=== PATIENT | male | born 1975 | race Caucasian/White ===

== ENCOUNTER 2023-03-04 15:58 | Outpatient (CLI) | payer OTHER ==
--- NOTE | 2023-03-04 16:27 | Sleep Patient Instructions ---
Sleep Center Visit Summary - Patient Visit Information Reason for Visit: Initial consult for evaluation of sleep disordered breathing and other sleep issues. - Patient Instructions Instructions Attached: Sleep Study Home Monitor, Sleep Study Additional Instructions: You will be completing a sleep study, either an in-lab polysomnography (PSG) or home sleep study (HST). You will follow-up in the sleep care office after the sleep study is completed to hear the results and talk about therapy, if needed. You will be called by our office staff to schedule this appointment, but you may contact us with any questions. - Clinic Information Contact: [facility] [address] [place] [id number] [email or web address] T: [phone]
--- NOTE | 2023-03-04 16:31 | SLEEP CARE CONSULTATION ---
Information from patient questionnaire entered by Nura Duran. I have reviewed and concur with the information entered by Nura Duran. This document represents the service I personally performed and the decisions made by me, Digna Yeager ARNP. History of Present Illness Service Date and Time: 03/04/2023 1558 Reason for Visit: New patient Chief Complaint: reports: Snoring, Excessive daytime sleepiness, Fatigue, Other (JAW PAIN) Date of Onset: 30YRS Usual bedtime: 11PM Time it takes to fall asleep: 5MIN Snores at night: Yes Observed to quit breathing while asleep: No Sleeps alone due to snoring: No Number of times waking at night: 2 Reasons for waking at night: reports: Pain, Bathroom, Other (DIABETIC BLOOD SUGAR; rare reflux). denies: Choking, Snoring, Gasping for air Toss, Turn, or Twitch while sleeping: Yes Recalls having dreams: Yes (occasional) Usually gets out of bed at: 6AM Feels refreshed in the morning: Yes (about once a week; usually not as rested) Morning headache: No Sleepy or fatigued during the day: Yes (unintentional naps at [employer]) Ever fallen asleep while driving: No Takes day naps: Yes (on weekends) Dreams during day naps: No Prior sleep studies: No Additional HPI information: I had the pleasure of seeing DILIA POST today regarding the possibility of him having a sleep disorder. His current complaints are snoring, excessive daytime sleepiness, fatigue and jaw pain. He comes in for a combination of reasons. His dentist is concerned about his grinding his teeth at night. He has a bad overbite and TMJ issues. His dentist wants him to have jaw surgery. His doctor is concerned about daytime fatigue and snoring. His has noted that he stops breathing at night and he is clacking and grinding his teeth. He wakes up with jaw pain and his jaw is "almost locked up" in the morning. He says maybe once a week he will wake up feeling refreshed. He denies headaches in the morning. - Parasomnia Symptoms Ever been unable to move upon waking from sleep: No Walks in sleep: No Talks in sleep: No Ever acted out dreams in sleep: No Ever felt weak in the knees when startled or emotional: Yes (feels tingly when startled but not falling down) Bothered by creepy, crawly, restless sensations in legs: No Problems with memory or concentration: Yes (never good memory) Subjective Initial [place] Sleepiness Scale score: 10 (03/03/23) Past Medical History Past Medical History: reports: Diabetes (type 1), Arrythmia (heart flutters as a child, occasional as adult), Asthma (exercise induced or with allergies), GERD Social History The patient's occupation is a TEACHER. Patient is and lives in [place]. Have you smoked in the past 12 months: No Alcohol use: Yes Alcohol amount and frequency: 1 DRINK 2 X WEEKLY Caffeine use: Yes Caffeine amount and frequency: 3 COFFEES DAILY Family History Family history of sleep disordered breathing: Yes Family Hx Sleep Apnea: Mother: Snoring, Father: Snoring, Sibling: Snoring, Grandparent: Snoring Allergies and Home Medications Known drug allergies: No Drug allergies reviewed: Yes Home medication list reviewed: Yes (as listed) Allergy and home medication list: Home Medications Medication Instructions Recorded Confirmed Last Taken Type Albuterol Sulf [Ventolin Hfa See Rx Instructions .ROUTE .COMPLEX 03/03/23 03/04/23 Unknown History Inhaler] Insulin NPH Human [HumuLIN N] See Rx Instructions .ROUTE .COMPLEX 03/03/23 03/04/23 Unknown History Loratadine See Rx Instructions .ROUTE .COMPLEX 03/03/23 03/04/23 Unknown History Pravastatin [Pravachol] See Rx Instructions .ROUTE .COMPLEX 03/03/23 03/04/23 Unknown History Review of Systems Weight gain over past 5 years: 10 Cardiovascular: reports: chest pain. denies: high blood pressure Respiratory: reports: shortness of breath, wheeze, sputum production, chronic cough Gastrointestinal: reports: heartburn, abdominal pain Neurological: reports: headaches Ear/Nose/Throat: reports: nasal congestion, dry mouth/throat, hoarseness, tonsillectomy, wisdom teeth removed, other (TMJ) Endocrine: reports: sluggishness Musculoskeletal: reports: joint pain, neck pain, back pain Physical Exam Vital signs obtained and entered by: NURA Mcguire MA Blood Pressure: 152/87 (LEFT ARM) Cuff size: regular Heart Rate: 86 O2 Saturation: 97 Height: 5 ft 11.25 in Weight: 226 lb 9.6 oz Body Mass Index: 31.4 BMI Classification: Obese Neck circumference: 16.5 Mouth and throat: narrow oropharynx Soft palate: long Hard palate: normal Uvula: normal Uvula visualization: 100% Mallampati Class I Tongue: normal in size Tonsils: absent bilaterally Chin and jaw: Retrognathia Neck: normal w/o lymphadenopathy or thyromegaly Heart: regular rate and rhythm Lungs: clear bilaterally Impression and Plan 1. Suspected Obstructive Sleep Apnea-Hypopnea Syndrome, as suggested by a history of loud and irregular snoring, observed cessation of breath while asleep, unrefreshed sleep, cognitive impairment, and excessive daytime sleepiness. Narrow oropharynx and obesity are common predisposing factors for obstructive sleep apnea-hypopnea syndrome. I recommend proceeding to polysomnography to confirm the diagnosis and to assess severity. If the patient has significant sleep disordered breathing, a manual CPAP titration study will also be performed to find the optimal treatment pressure. I informed the patient of what the sleep studies involve and after some discussion, obtained agreement to proceed. The pathophysiology of obstructive sleep apnea-hypopnea syndrome was discussed with the patient and health risks of cardiovascular and cerebrovascular disease if not treated. Risks of drowsy driving discussed in detail and patient advised to avoid long distance driving and to tap puller at the first sign of drowsiness. Patient agreed to plan. * Schedule polysomnography * Avoid long distance driving or driving when feeling sleepy. * Avoid alcohol, sedative and muscle relaxant around bedtime. * Attempt to lose weight. * Review instructions provided by trained office staff on how to prepare for the sleep study. * Return for follow-up after sleep study completed. Counseling Topics: Weight loss health impact Follow up with Sleep Care in: other (after sleep study) Plan: PSG/HST Visit Type: In Office Time Spent with Patient (minutes): 31 Provider Statement: I spent 100% of the Face to Face Visit with the patient with greater than 50% spent counseling the patient and coordination of care.
[2023-03-04 16:36] VITALS: BP 152/87; O2SAT 97
== END 2023-03-04 15:59 | disposition home or self-care (01) ==
LOC: SC 15:58
PROVIDERS: ATTEND Nurse Practitioner Family
DX: G47.10 Hypersomnia, unspecified (principal); R53.83 Other fatigue; G47.8 Other sleep disorders; R06.83 Snoring; R06.81 Apnea, not elsewhere classified; I49.9 Cardiac arrhythmia, unspecified; E10.9 Type 1 diabetes mellitus without complications; E66.9 Obesity, unspecified; Z68.31 Body mass index [BMI] 31.0-31.9, adult
CPT/HCPCS: 99203; 99212

== ENCOUNTER 2023-08-09 09:30 | Outpatient (CLI) | payer OTHER | END 2023-08-09 09:31 | disposition home or self-care (01) | LOC: SC 09:30 | PROVIDERS: ATTEND Nurse Practitioner Family | DX: G47.33 Obstructive sleep apnea (adult) (pediatric) (principal); E66.9 Obesity, unspecified; Z68.31 Body mass index [BMI] 31.0-31.9, adult | CPT/HCPCS: 95806 ==

== ENCOUNTER 2023-09-29 08:48 | Outpatient (CLI) | payer OTHER ==
--- NOTE | 2023-09-29 09:20 | Sleep Patient Instructions ---
Sleep Center Visit Summary - Patient Visit Information Reason for Visit: Sleep study follow-up - Patient Instructions Additional Instructions: You were here for follow up of Home study which showed some mild sleep apnea with severe apneas on your back. However, the study was suboptimal due to loss of pulse oximetry and less than 240 minutes of sleep time. We will try to get authorization to repeat sleep study in the lab. If so, you will be completing a sleep study in-lab polysomnography (PSG). You will follow- up in the sleep care office after the sleep study is completed to hear the results and talk about therapy, if needed. You will be called by our office staff to schedule this appointment, but you may contact us with any questions. - Clinic Information Contact[facility] [address] [place] [address] [email or web address] T: [phone]
--- NOTE | 2023-09-29 09:28 | SLEEP CARE CONSULTATION ---
Information from patient questionnaire entered by Ashanti Duran. I have reviewed and concur with the information entered by Ashanti Duran. This document represents the service I personally performed and the decisions made by , Digna Yeager ARNP. History of Present Illness Service Date and Time: 09/29/2023 0848 Initial [place] Sleepiness Scale score: 10 (03/03/23) Current [place] Sleepiness Scale score: 9 (09/29/23) Additional HPI information: DILIA POST returns for follow up and results of the recently performed home sleep study. The sleep study done on 08/09/23 showed mild obstructive sleep apnea with an average AHI of 7.4 and kevon oxygen saturation of 90%. His study was a fair study due to loss of pulse oximetry signal and sub-optimal sleep time during night of sleep study. I explained the pathophysiology behind obstructive sleep apnea. We then spent quite a bit of time discussing different treatment options. For mild obstructive sleep apnea, surgery and oral appliance are alternatives to nasal CPAP therapy but in moderate or severe cases, nasal CPAP is the most effective and reliable treatment. Because apnea is primarily in supine position, then positional management therapy could be mostly effective. Methods discussed such as positioning with pillows, using a T-shirt with tennis balls in the back or commercial products that have a pillow format on back to prevent supine sleep. I reviewed the impact of weight changes on sleep apnea and strongly recommended losing weight. Patient counseled not drink alcohol less than 4 hours before bedtime as it can increase snoring and apnea. Patient was cautioned about risks of drowsy driving until sleepiness symptoms resolve. Sleep Study - Results Type of Sleep Study: Home sleep study (COMPLETED 08/09/23) Prior sleep studies: No Polysomnography/Home Sleep Study results: Physician Impression: The quality of the study is fair due to partial loss of pulse oximetry signal. The length of the study is not optimal (< 240 minutes). Please also see the tabulated and graphic data. 1. Obstructive Sleep Apnea-Hypopnea (ICD-10 G47.33), mild, with an AHI of 7.4/hr and kevon SaO2 of 90%. During the study, the patient had 9 apneas (9 obstructive, 0 central, 0 mixed) and 5 hypopneas. The longest episode lasted 87.0 seconds. The respiratory events occurred more frequently during supine sleep (supine AHI was 46.2 and non-supine, 6.46). Allergies and Home Medications Known drug allergies: No Drug allergies reviewed: Yes Home medication list reviewed: Yes (Humalog, Pravastatin, aspirin, Claritin) Allergy and home medication list: Allergies No Known Drug Allergies Allergy (Verified 09/29/23 08:51) Review of Systems Review of systems same as previous: Yes (no changes) Physical Exam Vital signs obtained and entered by: ASHANTI Mcguire MA Blood Pressure: 154/83 (LEFT ARM) Cuff size: long Heart Rate: 85 O2 Saturation: 97 Height: 5 ft 11.25 in Weight: 229 lb Body Mass Index: 31.7 BMI Classification: Obese Impression and Plan 1. Obstructive Sleep Apnea-Hypopnea Syndrome, mild, with lowest oxygen saturation of 90%. Obviously this is the cause of the patients symptoms of unrefreshed sleep, and excessive daytime sleepiness. Positive pressure therapy could benefit diabetes, arrhythmia, asthma and gastric reflux. I advised him to sleep mostly non-supine since his study showed elevated AHI of 46. His study was suboptimal due to the loss of pulse oximetry signal and reduced sleep time for evaluation. I recommend that we see if we can repeat the study in our sleep lab to try to get more accurate results since this test is the gold standard test for sleep apnea. I obtained agreement to proceed. The pathophysiology of obstructive sleep apnea-hypopnea syndrome was discussed with the patient and health risks of cardiovascular and cerebrovascular disease if not treated. Risks of drowsy driving discussed in detail and patient advised to avoid long distance driving and to cloth covered helmet puller at the first sign of drowsiness. Patient agreed to plan. 2. Obesity, unspecified. Currently patients BMI is 31.7. Obesity increases the risk of apnea, CPAP pressure requirements and overall health risks especially cardiovascular and diabetes. Thus patient is advised to lose weight. * Schedule polysomnography * He is to avoid supine sleep until night of sleep study * Avoid long distance driving or driving when feeling sleepy. * Avoid alcohol, sedative and muscle relaxant around bedtime. * Attempt to lose weight. * Review instructions provided by trained office staff on how to prepare for the sleep study. * Return for follow-up after sleep study completed. Counseling Topics: Sleeping position, Weight loss health impact Plan: Repeat sleep study in sleep lab Visit Type: In Office Time Spent with Patient (minutes): 25 Provider Statement: I spent 100% of the Face to Face Visit with the patient with greater than 50% spent counseling the patient and coordination of care.
[2023-09-29 09:36] VITALS: BP 154/83; O2SAT 97
== END 2023-09-29 08:49 | disposition home or self-care (01) ==
LOC: SC 08:48
PROVIDERS: ATTEND Nurse Practitioner Family
DX: G47.33 Obstructive sleep apnea (adult) (pediatric) (principal); E66.9 Obesity, unspecified; Z68.31 Body mass index [BMI] 31.0-31.9, adult
CPT/HCPCS: 99212; 99213